=== PATIENT | male | born 1965 | race Caucasian/White ===

== ENCOUNTER 2019-02-05 00:31 | Emergency (ER) | payer BC ==
[~2019-02-05] VITALS: Ht 165.1 cm; Wt 72.6 kg
[2019-02-05 00:42] VITALS: BP_SYST 154
--- NOTE | 2019-02-05 00:42 | NUR ---
Patient to ER bed 3 to gown for evaluation. Side rails up.
--- NOTE | 2019-02-05 00:50 | NUR ---
Dr. león at bedside examining Pt.
--- NOTE | 2019-02-05 01:02 | NUR ---
Pt complains bump and swelling to left thumb x 3 days. Pt denies any trauma and noticed that there was erythema and swelling to thumb. Pt denies any pain at the moment but states he had pain last night. Pt denies N/V or fever. NO other injuries/complaints per patient or noted.
--- NOTE | 2019-02-05 01:14 | NUR ---
I&D Procedure done by Dr Jordan to left thumb using sterile technique. Lidocaine 1% used. Adaptic, 4x4 to wound. Minimum amt of bleeding noted. Wound care discussed w/ patient. Pt tolerated procedure well. Applied Bacitracin to site.
--- NOTE | 2019-02-05 01:14 | NUR ---
Shamika mccarty in ED - 02/05/19 at 0346 by [email or web address] GRAEME Jordan at bedside examining patient.
[2019-02-05] MEDS ORDERED: LIDOCAINE 1% 10 MG/ML, 20 ML MDV INJ ONE (01:15)
[2019-02-05] MEDS ORDERED: LIDOCAINE 1%, 20 ML MDV 20 ML ONE (01:19)
[2019-02-05] MEDS ORDERED: LEVOFLOXACIN 500 MG TABLET PO ONE (01:30)
[2019-02-05] MEDS ORDERED: BACITRACIN ZINC 15 GM TOPICAL OINTMENT TP ONE (01:30)
[2019-02-05] MEDS ORDERED: ACETAMINOPHEN 325 MG TABLET PO ONE (01:45)
[2019-02-05 02:26] VITALS: BP_SYST 144
--- NOTE | 2019-02-05 02:26 | NUR ---
ddPatient given written and verbal discharge instructions and verbalizes understanding. ER MD discussed with patient the results and treatment provided. Patient in stable condition. ID arm band removed. Rx of Levaquin and [place] given. Patient educated on pain management and to follow up with PMD. Pain Scale 0. Opportunity for questions provided and answered. Medication side effect fact sheet provided.
== END 2019-02-05 02:26 | disposition home or self-care (01) ==
LOC: SED 00:31
DX: L03.012 Cellulitis of left finger (principal)
CPT/HCPCS: 10060; 87070; 87075; 99283; J2001